=== PATIENT | male | born 1985 | race Hispanic/Latino ===

== ENCOUNTER 2021-03-31 16:35 | Emergency (ER) | payer OTHER, SELFPAY ==
[2021-03-31] MEDS ORDERED: Tetracaine 0.5% PF 4 ML BOT ONE (16:58)
[2021-03-31] MEDS ORDERED: Acetaminophen 650 MG Suppository ONE (18:51)
[2021-03-31] MEDS ORDERED: HYDROcodone/Acetaminophen 5/325 mg Tablet ONE (18:51)
[2021-03-31] MEDS ORDERED: Ketorolac Tromethamine 60 MG/2 ML VIAL ONE (18:51)
[2021-03-31] MEDS ORDERED: Erythromycin Base 0.5% Ophth Oint 3.5 gm Tube ONE (18:51)
[2021-03-31] MEDS ORDERED: Acetaminophen 325 MG TAB ONE (18:52)
[2021-03-31] MEDS ORDERED: Acetaminophen 325 MG Suppository ONE (18:52)
== END 2021-03-31 19:19 | disposition home or self-care (01) ==
LOC: MADERS 16:35
DX: S05.02XA Injury of conjunctiva and corneal abrasion without foreign body, left eye, initial encounter (principal); F17.200 Nicotine dependence, unspecified, uncomplicated; X16.XXXA Contact with hot heating appliances, radiators and pipes, initial encounter; Y99.0 Civilian activity done for income or pay
CPT/HCPCS: 70450; 70486; 96372; J1885